=== PATIENT | female | born 1975 | race African-American/Black ===

== ENCOUNTER 2019-11-16 10:00 | Emergency (ER) | payer OTHER ==
--- NOTE | 2019-11-16 10:05 | PDOC ---
History of Present Illness - General Stated Complaint: SOB Time Seen by Provider: 11/16/19 10:03 History Source: Patient - History of Present Illness Is this a multiple visit Asthma Patient?: Yes Severity: reports: mild Review of Systems - Review of Systems Constitutional: No: Chills, Fever, Malaise Respiratory: Yes: Cough, Shortness of Breath. No: Wheezing Cardiac (ROS): No: Chest Pain *Physical Exam - Physical Exam General Appearance: Yes: Appropriately Dressed. No: Apparent Distress HEENT: positive: Normal Voice Neck: positive: Supple Respiratory/Chest: positive: Lungs Clear, Normal Breath Sounds. negative: Respiratory Distress Cardiovascular: positive: Regular Rate, S1, S2 Integumentary: positive: Dry, Warm Neurologic: positive: Fully Oriented, Alert, Normal Mood/Affect Medical Decision Making - Medical Decision Making 11/16/19 10:03 44 yo F, h/o asthma, no recent admissions, no intubations, uses rescue inhaler as needed, here w/ mild cough, LIZAMA, low grade fever x 5 days, developed SOB 2 days ago that does not feel like her asthma per pt. No wheezing, tightness or body aches. 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 Dc to self quarantine at home pending covid results. To return as needed Discharge - Discharge Information Problems reviewed: Yes Clinical Impression/Diagnosis: URI (upper respiratory infection) Qualifiers: URI type: unspecified viral URI Qualified Code(s): J06.9 - Acute upper respiratory infection, unspecified Condition: Good Disposition: HOME - Follow up/Referral - Patient Discharge Instructions Patient Printed Discharge Instructions: [facility] COVID-19 Iso lation Protocol Additional Instructions: Please quarantine at home until your covid testing comes back Your flu and CXR were negative - Post Discharge Activity Work/Back to School Note: Back to Work
[2019-11-16 10:09] VITALS: BP 129/79; PULSE 73; TEMP 97.3
== END 2019-11-16 12:25 | disposition home or self-care (01) ==
LOC: JER 10:00
DX: J06.9 Acute upper respiratory infection, unspecified (principal)
CPT/HCPCS: 71046-TC-FY; 87804; 99283-25; U0002

== ENCOUNTER 2021-06-23 00:09 | Emergency (ER) | payer BC, OTHER ==
[2021-06-23 00:28] VITALS: BP 142/78; PULSE 81; TEMP 97.6; BMI 30.1
== END 2021-06-23 02:27 | disposition home or self-care (01) ==
LOC: JER 00:09
DX: R05.1 Acute cough (principal); J06.9 Acute upper respiratory infection, unspecified; Z11.52 Encounter for screening for COVID-19
CPT/HCPCS: 99283-25; C9803; U0003; U0005

== ENCOUNTER 2021-08-12 11:05 | Emergency (ER) | payer BC | END 2021-08-12 12:20 | disposition home or self-care (01) | LOC: JVIRT 11:05 | DX: R09.81 Nasal congestion (principal); R09.82 Postnasal drip; Z11.52 Encounter for screening for COVID-19 | CPT/HCPCS: C9803; Q3014-GT; U0003; U0005 ==

== ENCOUNTER 2021-08-28 13:01 | Emergency (ER) | payer BC | END 2021-08-28 13:22 | disposition home or self-care (01) | LOC: JVIRT 13:01 | DX: Z20.822 Contact with and (suspected) exposure to COVID-19 (principal) | CPT/HCPCS: C9803-CS; Q3014-GT; U0003; U0005 ==